=== PATIENT | female | born 1945 | race Caucasian/White ===

== ENCOUNTER → 2017-05-24 | Outpatient (CLI) | payer OTHER | LOC: CIMAGING 08:36 | PROVIDERS: ATTEND Family Medicine | DX: R10.10 Upper abdominal pain, unspecified (principal) | CPT/HCPCS: 76705-PO; 80053-PO; 82150-PO; 83690-PO; 85025-PO ==

== ENCOUNTER → 2017-10-17 | Outpatient (CLI) | payer OTHER | LOC: EEVIPCON 13:14 → FIMAGING 13:14 | PROVIDERS: ATTEND Family Medicine | DX: Z12.31 Encounter for screening mammogram for malignant neoplasm of breast (principal) | CPT/HCPCS: G0202 ==